=== PATIENT | male | born 1935 | race Caucasian/White ===

== ENCOUNTER 2021-04-24 11:03 | Emergency (ER) | payer OTHER, SELFPAY ==
[2021-04-24] MEDS ORDERED: Boostrix 0.5 ML (Tdap) VIAL ONE (11:51)
[2021-04-24] MEDS ORDERED: Bacitracin 1 PK ONE (11:51)
== END 2021-04-24 12:15 | disposition home or self-care (01) ==
LOC: MADERS 11:03
DX: S41.111A Laceration without foreign body of right upper arm, initial encounter (principal); E11.9 Type 2 diabetes mellitus without complications; E78.5 Hyperlipidemia, unspecified; I10 Essential (primary) hypertension; F17.210 Nicotine dependence, cigarettes, uncomplicated; Z79.4 Long term (current) use of insulin; Z79.899 Other long term (current) drug therapy; W01.0XXA Fall on same level from slipping, tripping and stumbling without subsequent striking against object, initial encounter
CPT/HCPCS: 90471; 90715